=== PATIENT | male | born 1970 | race Caucasian/White ===

== ENCOUNTER 2017-03-13 18:24 | Emergency (ER) | payer BC ==
[~2017-03-13] VITALS: Ht 170.2 cm; Wt 84.8 kg
[2017-03-13] MEDS ORDERED: MOTRIN800 MG PO (20:08)
[2017-03-13] MEDS ORDERED: NORCO 7.5/321 TABLET PO (20:08)
[2017-03-13 20:45] VITALS: BP 161/94
== END 2017-03-13 20:45 | disposition home or self-care (01) ==
LOC: EME 18:24
DX: M19.032 Primary osteoarthritis, left wrist (principal); Z87.81 Personal history of (healed) traumatic fracture
CPT/HCPCS: 73110; 99281; 99283